=== PATIENT | female | born 1970 | race Caucasian/White ===

== ENCOUNTER → 2018-05-04 16:42 | Outpatient (CLI) | payer OTHER, SELFPAY ==
[2018-05-11 11:08] LABS: HPV Reflexed? NOT INDICATED
== END ==
PROVIDERS: Visit Provider Obstetrics & Gynecology
DX: Z12.4 Encounter for screening for malignant neoplasm of cervix (principal)
CPT/HCPCS: 88175; G0145

== ENCOUNTER → 2020-08-09 | Outpatient (CLI) | payer OTHER, SELFPAY ==
[2020-08-14 13:36] LABS: HPV Reflexed? NOT INDICATED
== END | disposition home or self-care (01) ==
LOC: LABSPEC 10:30
PROVIDERS: Visit Provider Obstetrics & Gynecology
DX: Z12.4 Encounter for screening for malignant neoplasm of cervix (principal)
CPT/HCPCS: 88175; G0145

== ENCOUNTER → 2023-03-27 | Outpatient (CLI) | payer OTHER, SELFPAY ==
[2023-04-02 17:07] LABS: HPV APTIMA, High Risk Negative (Negative)
== END | disposition home or self-care (01) ==
PROVIDERS: Referring Provider Registered Nurse; Visit Provider Registered Nurse
DX: Z12.4 Encounter for screening for malignant neoplasm of cervix (principal)
CPT/HCPCS: 87624; 88175; G0145

== ENCOUNTER → 2023-04-08 | Outpatient (CLI) | payer OTHER, SELFPAY ==
--- NOTE | 2023-04-08 08:25 | BI_ITS ---
MAMMOGRAPHY - BILATERAL SCREENING REASON FOR EXAM: Female, 52 years old. Routine annual screening examination. PERTINENT HISTORY: Non-contributory. TECHNIQUE: Digital bilateral breast kirby (3D mammographic acquisition) in the CC and MLO projections. 2-D mediolateral oblique (MLO) and craniocaudad (CC) views of both breasts were obtained. CAD: Full Field Digital Mammography with Computer Added Detection was performed. COMPARISON: Screening mammogram from outside facility from 10/08/2021, 09/04/2020. FINDINGS: Breast Composition: There are scattered areas of fibroglandular density. There are no dominant masses or suspicious calcifications. Stable benign-appearing left breast calcifications. No other significant abnormalities are identified. There has been no significant change since the prior study. BI/SCRN MAMM (CAD)W/KIRBY BILAT IMPRESSION: Negative screening mammogram. Stable examination when compared to outside study from 10/08/2021. Yearly followup mammogram recommended. (A) ASSESSMENT CATEGORY: BIRADS Category 2: Benign. A letter regarding these results will be sent to the patient by the facility within 30 days. Approximately 10% of breast cancers are not detected by mammography. A normal mammogram should not delay biopsy of a clinically suspicious abnormality. Electronically Signed: Jarett Singh DO at 11:40 EDT ,
[2023-04-08 09:11] LABS: Hematocrit 41.7 % (37-47); Hemoglobin 13.9 g/dL (12.0-15.0); Mean Corp Hgb Conc 33.3 g/dL (32-36); Mean Corpuscular Volume 92.9 fL (81-99); Mean Platelet Vol. 9.4 fl (6.2-12.0); Platelet Count 233 K/mm3 (150-450); RBC Distribution Width CV 12.1 % (11.6-14.6); RBC Distribution Width SD 41.5 fl (35.1-43.9); Red Blood Count 4.49 M/mm3 (4.2-5.4); White Blood Count 6.3 K/mm3 (4.4-11.0)
[2023-04-08 09:24] LABS: ALB/GLOB Ratio 1.1 RATIO (0.9-2.4); AST(SGOT) 17 U/L (15-37); Alanine Aminotransfer ALT/SGPT 13 U/L (13-56); Albumin, Serum 4.3 g/dL (3.2-5.0); Alkaline Phosphatase 95 U/L (45-117); Anion Gap 8 (5-15); BUN 11 mg/dL (7-18); Calcium,Total 9.8 mg/dL (8.5-10.1); Chloride 107 mmol/L (98-107); Creatinine, Serum 0.91 mg/dL (0.55-1.02); EST Glomerular Filtration Rate 69 mL/min (>60); Est Glom Filt Rate - Afr Amer 83 mL/min (>60); Glucose 117 mg/dL (74-106); Potassium 3.5 mmol/L (3.5-5.1); Protein, Total 8.3 g/dL (6.4-8.2); Sodium Level 141 mmol/L (136-145)
[2023-04-08 10:18] LABS: Hemoglobin A1c 5.5 % (3.8-5.6)
== END | disposition home or self-care (01) ==
PROVIDERS: Referring Provider Registered Nurse; Visit Provider Registered Nurse
DX: Z12.31 Encounter for screening mammogram for malignant neoplasm of breast (principal); Z00.00 Encounter for general adult medical examination without abnormal findings
CPT/HCPCS: 36415; 77063; 77067; 80053; 83036; 85027

== ENCOUNTER 2023-05-14 07:15 | Day surgery (SDC) | payer OTHER, SELFPAY ==
[2023-05-14 07:39] VITALS: BP 152/77; PULSE 98; RESP 16; TEMP 36.9; O2SAT 100; BMI 32.9
[2023-05-14 07:44] LABS: Internal QC Validated? YES +Cl - CLEAR BKGD; Pregnancy, Urine Negative Negative
[2023-05-14] MEDS: Lactated Ringers 1,000 ML 15 ML IV (07:44)
--- NOTE | 2023-05-14 08:13 | HP.PCM_ITS ---
HPI - General General Date of Admission: 05/14/23 HPI Narrative IRAIS AMAYA, is a 52 F who presents for screening colonoscopy. Patient never had previous colonoscopy. Patient's maternal grandfather did have colon cancer in his 40s?patient's mother has not gotten a colonoscopy but her siblings have. Patient has bowel movements daily denies any blood. Patient denies any chronic abdominal pain/nausea/vomiting/reflux. PFSH Medical History (Updated 05/12/23 @ 09:53 by Mariah Enriquez) Arthritis History of echocardiogram History of stress test Non-smoker Wears glasses Home Medications NK 03/27/23 [History Last Taken Unknown] Allergy/AdvReac Type Severity Reaction Status Date / Time amoxicillin Allergy Mild Hives Verified 05/14/23 07:38 Family History (Updated 04/04/23 @ 14:48 by Jalyn Silvestre) Grandfather Colon cancer Other Diabetes Surgical History (Updated 05/12/23 @ 09:53 by Mariah Enriquez) History of cardiac catheterization S/P cholecystectomy Social History household members: spouse number of children: 2 current occupation: retired [employer] sexually active: Yes Smoking Status: Never smoker alcohol intake: never substance use type: does not use what type of physical activity do you participate in: yoga frequency: 5-6 times per week additional social history: - Francis Past Medical/Surgical History Planned Operation Planned Operative Procedure/s: COLONOSCOPY-OA Previous Hospitalizations/Surgeries HX Hospitalizations: No Any Problems With Anesthesia: No You/Your Family Experience Fever (Hyperthermia) With Anes: No Cholinesterase deficiency: No Cardiovascular Hx Hypertension: No Respiratory Hx Sleep Apnea: No Hx Respiratory Tract Infection/Cold (presently): No Do You Snore Loudly (louder than talking or can be heard): No Do You Often Feel Tired/ Fatigued/ Sleepy Dring Daytime?: No Has Anyone Observed You Stop Breathing During Sleep?: No Result (for STOP score): Negative Smoking Status: Never smoker Neurological Does patient have nerve stimulator: No Reproduction : No Allergies amoxicillin Allergy (Mild, Verified 05/14/23 07:38) Hives Discharge Is Pt Admitted From a Senior Living, or a Residential: No Vital Signs Vital Signs Vital Signs: 05/14/23 07:39 05/14/23 07:39 Temperature 98.4 F Temperature Source Temporal Pulse Rate 98 Respiratory Rate 16 Respiratory Pattern Normal Blood Pressure 152/77 H Blood Pressure Mean 102 Blood Pressure Source Monitor Blood Pressure Position Sitting Blood Pressure Location Left Arm Pulse Ox 100 Oxygen Delivery Method Room Air Weight Weight: 174 lb 2.643 oz Body Mass Index (BMI) 32.9 Physical Exam Const alert, oriented x3 and no apparent distress HEENT normocephalic and head/scalp atraumatic Resp normal respiratory effort Cardio regular rate GI soft to palpation and non-tender; Negative for non-distended Palpation: Negative for guarding Extremity no clubbing, cyanosis or edema Neuro CN's II-XII intact bilaterally Psych mental status grossly normal Assessment & Plan Assessment/Plan (1) Encounter for screening for malignant neoplasm of colon: Surgery Risks - Colonoscopy I discussed with the patient the risks of the procedure: Yes Risks Include but are not Limited To: Risks include but are not limited to: Bleeding, perforation requiring further surgery, inability to complete colonoscopy requiring barium enema.
[2023-05-14 08:54] VITALS: BP 107/67; PULSE 72; RESP 68; TEMP 36.3; O2SAT 100
--- NOTE | 2023-05-14 08:57 | OP.CCLET_ITS ---
05/14/2023 No Primary Care Physician Re : Colonoscopy procedure for Torie Osorio Dear Care Physician This procedure was performed on Sunday, May 14, 2023. My impressions and recommendations are as follows: Impressions : - Hemorrhoids found on perianal exam. - Non-bleeding internal hemorrhoids. - Diverticulosis in the sigmoid colon. - The examination was otherwise normal. - No specimens collected. Recommendations : - Discharge patient to home. - High fiber diet. - Continue present medications. - Repeat colonoscopy in 10 years for screening purposes. My findings are described in the full procedure note, which is enclosed. If I can be of further assistance, please feel free to contact me at Doctor phone number(s): , Work: . Sincerely, MD Marcia Valero MD 05/14/2023 8:56:53 AM This report has been signed electronically.
--- NOTE | 2023-05-14 08:57 | OP.COLON_ITS ---
Patient Name: Torie Osorio Procedure Date: 05/14/2023 8:23 AM Date of : 1970 Age: 52 Procedure: Colonoscopy Indications: Screening for colorectal malignant neoplasm Providers: Marcia Piña MD Medicines: Monitored Anesthesia Care Patient Profile: This is a 52 year old female. Last Colonoscopy: none. The patient's first colonoscopy is today. Complications: No immediate complications. Procedure: Pre-Anesthesia Assessment: - Prior to the procedure, a History and Physical was performed, and patient medications and allergies were reviewed. The patient's tolerance of previous anesthesia was also reviewed. The risks and benefits of the procedure and the sedation options and risks were discussed with the patient. All questions were answered, and informed consent was obtained. Prior Anticoagulants: The patient has taken no anticoagulant or antiplatelet agents. ASA Grade Assessment: Per anesthesia. After reviewing the risks and benefits, the patient was deemed in satisfactory condition to undergo the procedure. After I obtained informed consent, the scope was passed under direct vision. Throughout the procedure, the patient's blood pressure, pulse, and oxygen saturations were monitored continuously. The Colonoscope was introduced through the anus and advanced to the cecum, identified by the appendiceal orifice, ileocecal valve and palpation. The colonoscopy was performed without difficulty. The patient tolerated the procedure well. The quality of the bowel preparation was good. Scope In: 8:36:46 AM Scope Withdrawal Time 0 hours 6 minutes 8 seconds Scope Out: 8:49:40 AM Total Procedure Duration Time 0 hours 12 minutes 54 seconds Findings: Hemorrhoids were found on perianal exam. Non-bleeding internal hemorrhoids were found. The hemorrhoids were Grade I (internal hemorrhoids that do not prolapse). A few small-mouthed diverticula were found in the sigmoid colon. The exam was otherwise without abnormality. Impression: - Hemorrhoids found on perianal exam. - Non-bleeding internal hemorrhoids. - Diverticulosis in the sigmoid colon. - The examination was otherwise normal. - No specimens collected. Recommendation: - Discharge patient to home. - High fiber diet. - Continue present medications. - Repeat colonoscopy in 10 years for screening purposes. Procedure Code(s): --- Professional --- G0121, PT, Colorectal cancer screening; colonoscopy on individual not meeting criteria for high risk Diagnosis Code(s): --- Professional --- Z12.11, Encounter for screening for malignant neoplasm of colon K64.0, First degree hemorrhoids K57.30, Diverticulosis of large intestine without perforation or abscess without bleeding CPT copyright 2021 [employer]. All rights reserved. The codes documented in this report are preliminary and upon certified professional coder review may be revised to meet current compliance requirements. MD Marcia Valero MD 05/14/2023 8:56:53 AM This report has been signed electronically. Number of Addenda: 0 Note Initiated On: 05/14/2023 8:23 AM
[2023-05-14 08:59] VITALS: BP 107/67; BP 93/50; PULSE 70; RESP 16; O2SAT 98
[2023-05-14 09:05] VITALS: BP 107/67; BP 95/60; PULSE 59; RESP 16; O2SAT 98
[2023-05-14 09:10] VITALS: BP 107/67; BP 95/62; PULSE 60; RESP 16; TEMP 36.2; O2SAT 98
[2023-05-14 09:18] VITALS: BP 107/67
== END 2023-05-14 09:30 | disposition home or self-care (01) ==
LOC: EN 07:22 → AC 07:26
PROVIDERS: Anesthesiology; Visit Provider Surgery
PROC: 0DJD8ZZ Inspection of Lower Intestinal Tract, Via Natural or Artificial Opening Endoscopic (ICD-10-PCS; CPT 45378; principal; 2023-05-14 08:10)
DX: Z12.11 Encounter for screening for malignant neoplasm of colon (principal); K64.0 First degree hemorrhoids; K57.30 Diverticulosis of large intestine without perforation or abscess without bleeding; Z90.49 Acquired absence of other specified parts of digestive tract
CPT/HCPCS: 45378; 81025; J7120; J2405

== ENCOUNTER → 2024-05-06 | Outpatient (CLI) | payer OTHER, SELFPAY ==
--- NOTE | 2024-05-06 07:11 | BI_ITS ---
MAMMOGRAPHY - BILATERAL SCREENING REASON FOR EXAM: Female, 53 years old. Routine annual screening examination. PERTINENT HISTORY: Non-contributory. TECHNIQUE: Digital bilateral breast kirby (3D mammographic acquisition) in the CC and MLO projections. 2-D mediolateral oblique (MLO) and craniocaudad (CC) views of both breasts were obtained. CAD: Full Field Digital Mammography with Computer Added Detection was performed. COMPARISON: Comparison is made with prior study April 08, 2023. FINDINGS: Breast Composition: There are scattered areas of fibroglandular density. There are no dominant masses or suspicious calcifications. Stable benign-appearing left breast calcifications. No focal cluster is seen. No other significant abnormalities are identified. There has been no significant change since the prior study. BI/SCRN MAMM (CAD)W/KIRBY BILAT IMPRESSION: Stable bilateral screening mammogram. Yearly follow-up mammogram recommended. (A) ASSESSMENT CATEGORY: BIRADS Category 2: Benign. A letter regarding these results will be sent to the patient by the facility within 30 days. Approximately 10% of breast cancers are not detected by mammography. A normal mammogram should not delay biopsy of a clinically suspicious abnormality. [id number] Electronically Signed: Giovani Joyce MD at 8:32 EDT ,
== END | disposition home or self-care (01) ==
LOC: OPBI 07:11
PROVIDERS: Referring Provider Registered Nurse; Visit Provider Registered Nurse
DX: Z12.31 Encounter for screening mammogram for malignant neoplasm of breast (principal)
CPT/HCPCS: 77063; 77067

== ENCOUNTER → 2025-05-23 | Outpatient (CLI) | payer OTHER, SELFPAY ==
--- NOTE | 2025-05-23 07:30 | BI_ITS ---
EXAM: SCRN MAMM (CAD)W/KIRBY BILAT DATE: 05/23/2025 CLINICAL HISTORY: F, Age 54 y/o , SCREENING TECHNIQUE: Procedure Code: [id number] Modality: MG Procedure: SCRN MAMM (CAD)W/KIRBY BILAT COMPARISON: Prior exam(s) dated 05/06/2024 and 04/08/2023. FINDINGS: TISSUE DENSITY: The breasts are almost entirely fatty. Bilateral Breast Mammographic Findings: No significant masses, calcifications or other abnormalities are identified. Benign-appearing round microcalcifications are seen in both breasts. Benign-appearing macrocalcifications are seen in the left breast. A stable 2 mm benign-appearing intramammary lymph node in the lateral, far posterior aspect of the left breast is noted. BI/SCRN MAMM (CAD)W/KIRBY BILAT IMPRESSION: Benign screening mammogram OVERALL FINAL ASSESSMENT BI-RADS 2: BENIGN RECOMMENDATION: Routine annual follow-up in 1 Year Additional Recommendation none A letter with findings and recommendations will be mailed to the patient. Reading Location: [id number]
--- OUTSIDE RECORDS SUMMARY | 2025-05-23 07:45 | XMS RPT_ITS | CCD ---
Author Organization [facility] Care Team Providers Care Transmission Assembler Name Role Phone KRISTEN DOBBINS MD Consulting Unavailable EDELMIRA REECE Attending Unavailable EDELMIRA REECE Primary Care Unavailable EDELMIRA REECE Admitting Unavailable PROVIDER, UNKNOWN Consulting Unavailable PROVIDER, UNKNOWN Consulting Unavailable PROVIDER, UNKNOWN Consulting Unavailable BRIAN Palmer Attending Provider Care Physician, No Primary Primary Care Provider Unavailable Jalyn Silvestre Attending Provider Unavailable Care Physician, No Primary Referring Provider Un available Dr. Marcia Piña Attending Provider [phone] Dr. Marcia Piña Other Provider Care Physician, No Primary Primary Care Provider Unavailable Care Physician, No Primary Referring Provider Un available Massiel Huber Attending Provider Massiel Rdz Attending Unavailable Care Physician, No Primary Primary Care Unava ilable Care Physician, No Primary Referring Unava ilLaura Willams Referring Unavailable Care Physician, No Primary Primary Care Unava ilLaura Willams Attending Unavailable Allergies Allergy Classification Reported Allergen(s) Allergy Type Date of Onset Reaction(s) Facility (3 sources) Amoxicillin Drug Allergy 04-04-2023 [facility] (1 source) Amoxicillin Drug Allergy 04-23-2024 [facility] Repository Medications Current Medications Medication Drug Class(es) Dates Sig (Normalized) Sig (Original) [place] (Nk) (3 sources) Start: 04-23-2024 [place] (Nk) A ctive April 23, 2024 12:00am Start: 03-27-2023 [place] (Nk) A ctive March 27, 2023 12:00am Completed/Discontinued Medications Medication Drug Class(es) Dates Sig (Normalized) Sig (Original) azithromycin 250 mg oral tablet (1 source) Macrolide Antimicrobial Start: 01-05-2024 End: 04-23-2024 Azithromycin (Zithromax Z-Gonzalez) 250 mg tablet Discontinued 0 PO .COMPLEX 6 0 January 05, 2024 12:00am April 23, 2024 9:29am For 250 mg dose pack: take 500 mg today (day 1), then 250 mg for 4 days (days 2-5) PO valACYclovir 1000 mg oral tablet (3 sources) Herpesvirus Nucleoside Analog DNA Polymerase Inhibitor, Herpes Simplex Virus Nucleoside Analog DNA Polymerase Inhibitor, Herpes Zoster Virus Nucleoside Analog DNA Polymerase Inhibitor Start: 11-18-2022 End: 11-25-2022 Valacyclovir 1 gram tablet Discontinued 1000 mg PO Q8H 21 7 0 November 18, 2022 12:00am November 24, 2022 12:00am November 25, 2022 12:04am Start: 11-18-2022 End: 11-25-2022 take 1000 mg by mouth every eight hours Valacyclovir Discontinued 1000 MG PO Q8H 7 November 18, 2022 12:00am November 25, 2022 12:04am Problems Problem Classification Problem Date Documented Da te Episodic/Chronic Mycoses (1 source) Candidiasis of skin; Translations: [Candidiasis of skin and nail] 04-23-2024 Episodic Comment on above: desires to use topic al otc cream first. if not improved in 1 week will call for nystatin cream rx. Osteoarthritis (3 sources) Arthritis; Translations: [Unspecified osteoarthritis, unspecified site] 03-27-2023 Chronic Comment on above: NECK Other screening for suspected conditions (not mental disorders or infectious disease) (6 sources) Patient encounter status; Translations: [Encounter for screening for malignant neoplasm of colon] Onset: 05-31-2024 04-04-2023 Episodic Comment on above: 2022- normal. Residual codes; unclassified (3 sources) Family history of cancer of colon; Translations: [Family history of malignant neoplasm of digestive organs] 03-27-2023 Episodic Viral infection (3 sources) Herpes zoster; Translations: [Zoster without complications] 11-18-2022 Episodic Results Test Name Value Interpretation Reference Range Facility [facility] Visit Reporton 05-02-2025 [facility] Visit Report [address], [address] [place] [address] OFFICE VISIT Date of Service: 05/02/25 MR#: [id number] Acct: [id number] Name: IRAIS AMAYA Rep #: [id number] : 1970 Provider: GAVIOTA Winter Age/Sex: 54/F Location: [facility] Status: Signed Intake Vital Signs 04/23/24 09:28 05/02/25 07:09 05/02/25 07:12 Height 5 ft 1 in 5 ft 1 in 5 ft 1 in Weight: 203 lb BMI 38.3 BP 129/77 H 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) Allergies amoxicillin Allergy (Mild, Verified 04/23/24 09:25) Hives [facility] Medical History Wears glasses Non-smoker History of echocardiogram History of stress test Arthritis Surgical History History of cardiac catheterization S/P cholecystectomy Family History Grandfather Colon cancer Other Diabetes Social History household members: spouse number of children: 2 current occupation: retired [employer] sexually active: Yes Smoking Status: Never smoker alcohol intake: never substance use type: does not use what type of physical activity do you participate in: yoga frequency: 5-6 times per week additional social history: - Francis HPI Encounter for routine gynecological examination Details: IRAIS AMAYA is a 54 year old who presents for annual exam. She reports no issues or concerns today. Doing well. Continues in menopause--no vaginal bleeding since menopause started. Last PAP: 2022; normal/negative. History of abnormal PAP: no Last mammogram: 2023-negative. History of abnormal mammogram: none Colon cancer screening: Colonoscopy; 2022[facility]. Repeat in 10 years recommended. Other preventative health care screenings: Primary Care Doctor: Does not have. Female Reproductive History Questions: metrorrhagia: No, sexually active: Yes, dyspareunia: No and PCB: No Menopausal Symptoms: Yes hot flashes, Yes night sweats, No weight change, No mood changes, No difficulty concentrating, No sleep problems and No change in libido Menopausal Treatment: No HRT, No Vaginal Estrogen, No Osphena, No OTC treatments and No prescription non-hormonal treatment ROS Const Constitutional: Reports night sweats; Denies chills, fatigue, fever(s), headache(s) or weight loss Eyes Eyes: Denies change in vision ENT ENT: Denies dizziness Cardio Card: Denies chest pain at rest or palpitations Resp Resp: Denies cough or dyspnea GI GI: Denies abdominal pain, constipation or nausea : Reports hot flashes; Denies difficulty voiding, dysuria, hematuria, nipple discharge, pelvic pain, prolapse symptoms, urinary incontinence, vaginal discharge, vaginal dryness, vaginal odor or vaginal pruritus Skin Skin/Breast: Denies alopecia, rash, breast mass, breast pain, breast skin changes or nipple discharge Neuro Neuro: Denies dizziness Psych Psych: Denies anxiety, change in libido, depression or difficulty concentrating Endo Endo: Denies cold intolerance, excessive sweating or heat intolerance Exam Const General: cooperative, healthy appearing, comfortable, no acute distress, well groomed and well hydrated Nutritional Appearance: well nourished Orientation: alert, awake and oriented x3 HENMT Head: normal to inspection and normocephalic Ears: hearing grossly normal bilaterally and external ears normal Nose: external nose normal Face and sinus: normal facial exam Eyes General: appearance normal, both eyes and all related structures Neck Neck: normal visual inspection, full ROM and no lymphadenopathy Thyroid: thyroid normal Chest Chest palpation inspection: normal inspection of the chest Breast inspection: normal inspection of the breasts and normal inspection of the axillae Breast palpation: normal palpation of the breasts, normal palpation of the axillae and no axillary lymphadenopathy Resp Effort Inspection: normal respiratory effort, able to speak in complete sentences and symmetric chest movement GI Inspection: normal to inspection Palpation: soft and no hepatosplenomegaly General: bladder normal to palpation External Female Exam: normal external appearance and normal appearance of the urethra Urethra: normal appearance of the urethra Speculum Exam - Vagina: normal appearance of the vagina, normal vaginal discharge, no lesions and nontender Speculum Exam - Cervix: normal appearance of the cervix, no lesions and no masses Bimanual Exam- Vagina Uterus: normal bimanual exam, uterine size normal, bladder normal to palpation, normal palpation and non-tender Bimanual Exam- Adnexa, other: normal adnexae, no masses, normal and non-tender Pelvic Suppo (more content not included)... Normal [facility] SCRN MAMM (CAD)W/KIRBY BILATo n 05-06-2024 SCRN MAMM (CAD)W/KIRBY BILAT [facility] Imaging Services [address] [place] [address] SCRN MAMM (CAD)W/KIRBY BILAT MR#: [id number] Acct: [id number] Name: IRAIS AMAYA Rep #: [id number] : 1970 F 53 From: Giovani romero MD PCP: Care Physician,No Primary Status: REG CLI Study: SCRN MAMM (CAD)W/KIRBY BILAT Date of Exam: 04/18 05/11 Exam# [id number] Ordering Dr: Laura Palmer [facility] [id number] MAMMOGRAPHY - BILATERAL SCREENING REASON FOR EXAM: Female, 53 years old. Routine annual screening examination. PERTINENT HISTORY: Non-contributory. TECHNIQUE: Digital bilateral breast kirby (3D mammographic acquisition) in the CC and MLO projections. 2-D mediolateral oblique (MLO) and craniocaudad (CC) views of both breasts were obtained. CAD: Full Field Digital Mammography with Computer Added Detection was performed. COMPARISON: Comparison is made with prior study April 08, 2023. FINDINGS: Breast Composition: There are scattered areas of fibroglandular density. There are no dominant masses or suspicious calcifications. Stable benign-appearing left breast calcifications. No focal cluster is seen. No other significant abnormalities are identified. There has been no significant change since the prior study. BI/SCRN MAMM (CAD)W/KIRBY BILAT IMPRESSION: Stable bilateral screening mammogram. Yearly follow-up mammogram recommended. (A) ASSESSMENT CATEGORY: BIRADS Category 2: Benign. A letter regarding these results will be sent to the patient by the facility within 30 days. Approximately 10% of breast cancers are not detected by mammography. A normal mammogram should not delay biopsy of a clinically suspicious abnormality. [id number] Electronically Signed: Giovani Joyce MD at 8:32 EDT , CC: BRIAN Palmer; No Primary Care Physician Job Cost Estimator: Signed Normal [facility] Laboratory - Chemistry and C hemistry - challengeOrdered By: Godwin Reece on 05-14-2023 HCG ( test) Ql (U) Negative [facility] Comment on above: Very dilute urine sp ecimens, as indicated by a low specificgravity, may not contain artist's representative levels of hCG. If is still suspected, a first morning urinespecimen should be collected 48 hours later and tested. Basophil percentageOrdered B y: Laura Palmer on 04-08-2023 Bilirubin [Mass/Vol] 0.70 mg/dL 0.20-1.00 [facility] Comment on above: For patients on eltr ombopag therapy, use of [employer] TBIL is not recommended. Chloride [Moles/Vol] 107 mmol/L 98-107 [facility] Glucose [Mass/Vol] 117 mg/dL 74-106 [facility] Comment on above: Fasting Glucose resu lt from 100 to 125 mg/dL suggests IMPAIRED HOMEOSTASIS per A.D.A. criteria. Potassium [Moles/Vol] 3.5 mmol/L 3.5-5.1 [facility] Protein [Mass/Vol] 8.3 g/dL 6.4-8.2 [facility] Sodium [Moles/Vol] 141 mmol/L 136-145 [facility] WBC (Bld) [#/Vol] 6.3 10*3/uL 4.4-11.0 [facility] Blood erythrocytes count (nu mber/volume)Ordered By: Laura Palmer on 04-08-2023 RBC (Bld) [#/Vol] 4.49 10*6/uL 4.2-5.4 [facility] Blood hemoglobin measurement (mass/volume)Ordered By: Laura Palmer on 04-08-2023 Hemoglobin (Bld) [Mass/Vol] 13.9 g/dL 12.0-15.0 [facility] Blood platelet mean volumeOr dered By: Laura Palmer on 04-08-2023 Platelet mean volume (Bld) [Entitic vol] 9.4 fL 6.2-12.0 [facility] Determination of erythrocyte mean corpuscular volume (MCV)Ordered By: Laura Palmer on 04-08-2023 MCV (RBC) [Entitic vol] 92.9 fL 81-99 [facility] Hematocrit Auto (Bld) [Volum e fraction]Ordered By: Laura Palmer on 04-08-2023 Hematocrit (Bld) [Volume fraction] 41.7 % 37-47 [facility] Laboratory - Chemistry and C hemistry - challengeOrdered By: Laura Palmer on 04-08-2023 ALP [Catalytic activity/Vol] 95 U/L 45-117 [facility] ALT [Catalytic activity/Vol] 13 U/L 13-56 [facility] CO2 [Moles/Vol] 26.0 mmol/L 21.0-32.0 [facility] Globulin (S) [Mass/Vol] 4.0 g/dL 2.2-4.2 [facility] Urea nitrogen/Creatinine [Mass ratio] 12.0 mg/mg 10-20 [facility] Laboratory - Hematology and Cell countsOrdered By: Laura Palmer on 04-08-2023 Erythrocyte distribution width (RBC) [Entitic vol] 41.5 fL 35.1-43.9 [facility] Erythrocyte distribution width (RBC) [Ratio] 12.1 % 11.6-14.6 [facility] MCH (RBC) [Entitic mass] 31.0 pg 27.0-32.0 [facility] MCHC Auto (RBC) [Mass/Vol]Or dered By: Laura Palmer on 04-08-2023 MCHC (RBC) [Mass/Vol] 33.3 g/dL 32-36 [facility] No Panel InformationOrdered By: Laura Palmer on 04-08-2023 Estimated GFR (MDRD) Amer 83 mL/min >60 [facility] Comment on above: GFR Calc Estimated GFR (MDRD) Non-Af Amer 69 mL/min >60 [facility] Comment on above: Non- GFR Calc Platelets bldOrdered By: Eve Palmer on 04-08-2023 Platelets (Bld) [#/Vol] 233 10*3/uL 150-450 [facility] Serum or plasma albumin kimberly urement (mass/volume)Ordered By: Laura Palmer on 04-08-2023 Albumin [Mass/Vol] 4.3 g/dL 3.2-5.0 [facility] Serum or plasma albumin/glob ulin mass ratioOrdered By: Laura Palmer on 04-08-2023 Albumin/Globulin [Mass ratio] 1.1 {ratio} 0.9-2.4 [facility] Serum or plasma calcium kimberly urement (mass/volume)Ordered By: Laura Palmer on 04-08-2023 Calcium [Mass/Vol] 9.8 mg/dL 8.5-10.1 [facility] Serum or plasma creatinine m easurement (mass/volume)Ordered By: Laura Palmer on 04-08-2023 Creatinine [Mass/Vol] 0.91 mg/dL 0.55-1.02 [facility] Comment on above: The validity of the calculated GFR & GFRAA in patients over 70 years has not been determined. Clinical correlation is essential. Serum or plasma urea nitroge n measurement (mass/volume)Ordered By: Laura Palmer on 04-08-2023 Urea nitrogen [Mass/Vol] 11 mg/dL 7-18 [facility] Thin prep Papanicolaou smear with manual screeningOrdered By: Laura Palmer on 04-08-2023 Thin prep Papanicolaou smear with manual screening 17 U/L 15-37 [facility] Thin prep Papanicolaou smear with manual screening 8 5-15 [facility] Whole blood hemoglobin A1c/t otal hemoglobin ratio (mass fraction)Ordered By: Laura Palmer on 04-08-2023 HbA1c (Bld) [Mass fraction] 5.5 % 3.8-5.6 [facility] Comment on above: Normal < 5.7 % Predi abetic 5.7 - 6.4 % Diabetic >or= 6.5 % Please note range changes. Cervical or vagninal specime n microscopic examination by cytology stain (reported asOrdered By: Laura Palmer on 03-27-2023 Cytology report Cyto stain Doc (Cvx/Vag) Comment . [facility] Comment on above: The Pap smear is a s creening test designed to aid in thedetection of premalignant and malignant conditions of theuterine cervix. It is not a diagnostic procedure andshould not be used as the sole means of detecting cervicalcancer. Both false-positive and false-negative reports dooccur. Detection in cervical specim en of any of human papilloma virus (HPV) 16, 18, 31, 33,Ordered By: Laura Palmer on 03-27-2023 HPV 16+18+31+33+35+39+45+5 1+52+56+58+59+66+68 DNA Probe+sig amp Ql (Cvx) Negative Negative [facility] Comment on above: This nucleic acid am plification test detects fourteen high- risk HPV types (16,18,31,33,35,39,45,51,52,56,58,59,66,68)without differentiation. Laboratory - CytologyOrdered By: Laura Palmer on 03-27-2023 Tax Manager Cyto stain Nom (Cvx/Vag) [ID] Comment . [facility] Comment on above: Tatiana El otechnologist (ASCP) Pathologist Cyto stain Nom (Cvx/Vag) [ID] Comment . [facility] Comment on above: Jackie Mcdonald MD, [facility] Laboratory - Miscellaneous t estsOrdered By: Laura Palmer on 03-27-2023 Service comment (Unsp spec) [Interp] Comment . [facility] Comment on above: This liquid based Th inPrep(R) pap test was screened withthe use of an image guided system. Service comment (Unsp spec) [Interp] . . [facility] Liquid-based cerv Pap + CT/G C by CARLOS w reflex to high-risk HPV for ASCUSOrdered By: Laura Palmer on 08-10-2023 Cytology report Cyto stain.thin prep Doc (Cvx/Vag) Comment . [facility] Comment on above: Criteria not met, HP V Genotype not performed.Performed at: [facility] [id number] [place], [place] [id number] Director: Yamil Flores MD, Phone: [phone] at: - [facility] [id number] Director: Alma Rosa Pederson MD, Phone: [phone] at: =G - [facility] [address] [id number] Director: Alma Rosa Pederson MD, Phone: [phone] No Panel InformationOrdered By: Laura Palmer on 03-27-2023 Pathology report final diagnosis Narrative Comment . [facility] Comment on above: NEGATIVE FOR INTRAEP ITHELIAL LESION OR MALIGNANCY.REACTIVE CELLULAR CHANGES AND/OR REPAIR ARE PRESENT. 3D MAMM BILAT SCREENon 10-08 3D MAMM BILAT SCREEN [place] [address] Patient: IRAIS AMAYA Phone#: : 1970 Age: 50 Gender: F Pt. Type: Out Account: [id number] Location: Ordering: EDELMIRA REECE Exam Date: 10/08/2021/9:04 Family Phys: KRISTEN DOBBINS Charge Code: [id number] Physician: [place] Order #: [id number] DLP Dose#: PROCEDURE: BILATERAL SCREENING BREAST TOMOSYNTHESIS MAMMOGRAM WITH CAD COMPARISON: [facility], BILAT SCREENING, 02/25/2019, 14:26. [facility], BILAT SCREENING, 09/04/2020, 9:13. INDICATIONS: Screening. BREAST COMPOSITION: Scattered fibroglandular densities(25-50% glandular). FINDINGS: DIAGNOSTIC CATEGORY 1--NEGATIVE ASSESSMENT. RIGHT BREAST: No significant suspicious finding. No significant change has occurred. LEFT BREAST: No significant suspicious finding. Stable benign calcifications. No significant change has occurred. RECOMMENDATIONS: ROUTINE MAMMOGRAM AND CLINICAL EVALUATION IN 12 MONTHS. PLEASE NOTE: A NORMAL MAMMOGRAM DOES NOT EXCLUDE THE POSSIBILITY OF BREAST CANCER. A CLINICALLY SUSPICIOUS PALPABLE LUMP SHOULD BE BIOPSIED. THIS FACILITY UTILIZES A REMINDER SYSTEM TO ENSURE THAT ALL PATIENTS RECEIVE REMINDER LETTERS FOR APPOINTMENTS. THIS INCLUDES REMINDERS FOR ROUTINE MAMMOGRAMS, DIAGNOSITC MAMMOGRAMS, OR OTHER BREAST IMAGING INTERVENTIONS WHEN APPROPRIATE. THIS PATIENT WILL BE PLACED IN THE APPROPRIATE REMINDER SYSTEM. Dictated by: Calin Stewart MD on 10/08/2021 at 11:01 Approved by: Calin Stewart MD on 10/08/2021 at 11:02 Normal [facility] Vital Signs Date Time Vital Sign Value Performing Clinician Faci lity 05-02-2025 07:12-0400 Body height 154.94 cm No Primary Care Physician [facility] 05-02-2025 07:09-0400 Body mass index (BMI) [Ratio] 38.3 kg/m2 No Primary Care Physician [facility] 05-02-2025 07:09-0400 Body weight 92.07 kg No Primary Care Physician [facility] 05-02-2025 07:09-0400 Diastolic blood pressure 77 mm[Hg] No Primary Care Physician [facility] 05-02-2025 07:09-0400 Systolic blood pressure 129 mm[Hg] No Primary Care Physician [facility] 05-14-2023 09:10-0400 Body temperature 97.2 [degF] No Primary Care Physician [facility] 05-14-2023 09:10-0400 Diastolic blood pressure 62 mm[Hg] No Primary Care Physician [facility] 05-14-2023 09:10-0400 Heart rate 60 /min No Primary Care Physician [facility] 05-14-2023 09:10-0400 Respiratory rate 16 /min No Primary Care Physician [facility] 05-14-2023 09:10-0400 SaO2% (BldA) [Mass fraction] 98 % No Primary Care Physician [facility] 05-14-2023 09:10-0400 Systolic blood pressure 95 mm[Hg] No Primary Care Physician [facility] 05-14-2023 07:39-0400 Body height 154.94 cm No Primary Care Physician [facility] 05-14-2023 07:39-0400 Body mass index (BMI) [Ratio] 32.9 kg/m2 No Primary Care Physician [facility] 05-14-2023 07:39-0400 Body weight 79 kg No Primary Care Physician [facility] 04-04-2023 14:54-0400 Body height 154.94 cm No Primary Care Physician [facility] 04-04-2023 14:54-0400 Body mass index (BMI) [Ratio] 31.7 kg/m2 No Primary Care Physician [facility] 04-04-2023 14:54-0400 Body weight 76.2 kg No Primary Care Physician [facility] 03-27-2023 08:11-0400 Body mass index (BMI) [Ratio] 32.5 kg/m2 No Primary Care Physician [facility] 03-27-2023 08:11-0400 Body weight 78.01 kg No Primary Care Physician [facility] 03-27-2023 08:11-0400 Diastolic blood pressure 74 mm[Hg] No Primary Care Physician [facility] 03-27-2023 08:11-0400 Systolic blood pressure 120 mm[Hg] No Primary Care Physician [facility] Encounters Encounter Date Encounter Type Care Provider Facility Start: 05-02-2025 Encounter for gynecological examination (general) (routine) without abnormal findings Massiel Rdz [facility] Start: 05-02-2025 End: 05-02-2025 Patient encounter procedure Masisel MEEK -[facility] Start: 05-02-2025 End: 05-02-2025 Patient encounter status Massiel MEEK [facility] Start: 05-02-2025 End: 05-02-2025 ambulatory No Primary Care Physician -[facility] Start: 05-06-2024 End: 05-06-2024 ambulatory [facility] Facility:[facility] Start: 05-14-2023 Non-patient / Non-visit No [facility] Physician [id number] Start: 05-14-2023 End: 05-14-2023 Admission to same day surgery center No Primary Care Physician [facility]-Endoscopy Work Phone: Start: 05-14-2023 End: 05-14-2023 ambulatory No Primary Care Physician [facility] Work Phone: Start: 04-08-2023 End: 04-08-2023 ambulatory No Primary Care Physician [facility] Work Phone: Start: 04-08-2023 End: 04-08-2023 Patient encounter procedure No Primary Care Physician [facility]-Outpatient Breast Imaging Work Phone: Start: 04-04-2023 Non-patient / Non-visit No [facility] Physician [facility] Work Phone: Start: 03-27-2023 End: 03-27-2023 Patient encounter procedure No Primary Care Physician [facility]-Outpatient Breast Imaging Work Phone: Start: 03-27-2023 End: 03-27-2023 Patient encounter procedure No Primary Care Physician [facility] Start: 10-08-2021 End: 10-08-2021 ambulatory KRISTEN Romo [facility] Procedures Date Procedure Procedure Detail Performing Clinician Start: 05-14-2023 Colonoscopy No Primary Care Physician Start: 04-08-2023 Screening mammography N o Primary Care Physician Plan of Treatment Date Care Activity Detail Author Start: 05-14-[address] [facility] Start: 03-27-2023 Patient referral [facility] Work Phone: Colonoscopy [facility] MG Breast - bilateral Screening [facility] Patient referral [facility] Work Phone: Payers Date Payer Category Payer Self-pay [id number] 2024 Unknown [id number] 1970 Unknown [id number] Unknown [id number] Unknown [employer] [id number] Unknown [id number] Unknown [id number] Social History Date Type Detail Facility Start: 03-27-2023 End: 05-14-2023 Tobacco smoking status NHIS Unknown if ever smoked [facility] Start: 1970 Sex Assigned At Female [facility] Start: 05-14-2023 Tobacco smoking status NHIS Never smoked tobacco (finding) [facility] NEGATED: Highlighted row [facility] Goals Date Patient Goal Desired Activity /State Mental Status Date Assessment Result Facility 05-14-2023 Cognitive function Level Of Cons ciousness Follows Commands;Drowsy [facility] Work Phone: 05-14-2023 Cognitive function Voice/Name [facility] Work Phone: Clinical Notes 03-27-2023 to 05-02-2025 Note Date & Type Note Facility 05-02-2025 Progress note [facility] 05-14-2023 Procedure note [facility] 05-14-2023 Procedure note [facility] 03-27-2023 Note [facility] Pap Smear Specimen Adequacy March 27, 2023 1:33pm Comment . Satisfactory for evaluation. Endocervical and/or squamous metaplasticcells (endocervical component) are present. Comment on above: Satisfactory for calin luation. Endocervical and/or squamous metaplasticcells (endocervical component) are present. 03-27-2023 Note [facility] Pap Smear Specimen Adequacy March 27, 2023 1:33pm Comment . Satisfactory for evaluation. Endocervical and/or squamous metaplasticcells (endocervical component) are present. Comment on above: Satisfactory for calin luation. Endocervical and/or squamous metaplasticcells (endocervical component) are present. Evaluation note Diagnosis Onset Date Encounter for routine gyneco logical examination noneactive [facility] Work Phone: Evaluation note* Diagnosis Onset Date Resolution Status Encounter for routine gynecological examination noneactive Encounter for screening for malignant neoplasm of colon acute [facility] Work Phone: Evaluation note* Diagnosis Onset Date Resolution Status Admit Date Encounter for routine gynecological examination noneactive Sept2024 6:56am [facility] Work Phone: History and physical note Author Marcia Piña [facility] May 14, 2023 8:17am Note Date/Time May 14, 2023 8:17am [facility] Medical Records Department [address] [place] [address] History & Physical Exam 05/14/23812 MR#: [id number] Acct: [id number] Name: IRAIS AMAYA Rep #:[id number] : 1970 52 From: Marcia Piña MD PCP: Care Physician,No Primary Status :[facility] [place] Location: [place] [address] HPI - General General Date of Admission: 05/14/23 HPI Narrative IRAIS AMAYA, is a 52 F who presents for screening colonoscopy. Patient never had previous colonoscopy. Patient's maternal grandfather did have colon cancer in his 40s?patient's mother has not gotten a colonoscopy but her siblings have. Patient has bowel movements daily denies any blood. Patient denies any chronic abdominal pain/nausea/vomiting/reflux. [facility] Medical History (Updated 05/12/23 @ 09:53 by Mariah Enriquez) Arthritis History of echocardiogram History of stress test Non-smoker Wears glasses Home Medications NK 03/27/23 [History Last Taken Unknown] Allergy/AdvReac Type Severity Reaction Status Date / Time amoxicillin Allergy Mild Hives Verified 05/14/23 07:38 Family History (Updated 04/04/23 @ 14:48 by Jalyn Silvestre) Grandfather Colon cancer Other Diabetes Surgical History (Updated 05/12/23 @ 09:53 by Mariah Enriquez) History of cardiac catheterization S/P cholecystectomy Social History household members: spouse number of children: 2 current occupation: retired [employer] sexually active: Yes Smoking Status: Never smoker alcohol intake: never substance use type: does not use what type of physical activity do you participate in: yoga frequency: 5-6 times per week additional social history: - Francis Past Medical/Surgical History Planned Operation Planned Operative Procedure/s: COLONOSCOPY-OA Previous Hospitalizations/Surgeries HX Hospitalizations: No Any Problems With Anesthesia: No You/Your Family Experience Fever (Hyperthermia) With Anes: No Cholinesterase deficiency: No Cardiovascular Hx Hypertension: No Respiratory Hx Sleep Apnea: No Hx Respiratory Tract Infection/Cold (presently): No Do You Snore Loudly (louder than talking or can be heard): No Do You Often Feel Tired/ Fatigued/ Sleepy Dring Daytime?: No Has Anyone Observed You Stop Breathing During Sleep?: No Result (for STOP score): Negative Smoking Status: Never smoker Neurological Does patient have nerve stimulator: No Reproduction : No Allergies amoxicillin Allergy (Mild, Verified 05/14/23 07:38) Hives Discharge Is Pt Admitted From a Correction, or a Correction: No Vital Signs Vital Signs Vital Signs: 05/14/23 07:39 05/14/23 07:39 Temperature 98.4 F Temperature Source Temporal Pulse Rate 98 Respiratory Rate 16 Respiratory Pattern Normal Blood Pressure 152/77 H Blood Pressure Mean 102 Blood Pressure Source Monitor Blood Pressure Position Sitting Blood Pressure Location Left Arm Pulse Ox 100 Oxygen Delivery Method Room Air Weight Weight: 174 lb 2.643 oz Body Mass Index (BMI) 32.9 Physical Exam Const alert, oriented x3 and no apparent distress HEENT normocephalic and head/scalp atraumatic Resp normal respiratory effort Cardio regular rate GI soft to palpation and non-tender; Negative for non-distended Palpation: Negative for guarding Extremity no clubbing, cyanosis or edema Neuro CN's II-XII intact bilaterally Psych mental status grossly normal Assessment & Plan Assessment/Plan (1) Encounter for screening for malignant neoplasm of colon: Surgery Risks - Colonoscopy I discussed with the patient the risks of the procedure: Yes Risks Include but are not Limited To: Risks include but are not limited to: Bleeding, perforation requiring further surgery, inability to complete colonoscopy requiring barium enema. 05/14/2317 <Electronically signed by Marcia Piña MD> Cosigner Signature (if applicable): CC: Dr. Marcia Piña MD; No Primary Care Physician~ Signed [facility] Work Phone: Progress note Author Massiel Rdz [facility] Note Date/Time May 02, 2025 7:25am [facility] [address] [place] [address] OFFICE VISIT Date of Service: 05/02/25 MR#: [id number] Acct: [id number] Name: IRAIS AMAYA Rep #: [id number] : 1970 Provider: GAVIOTA Rdz Age/Sex: 54/F Location: [facility] [place] Status: Signed Intake Vital Signs 04/23/24 09:28 05/02/25 07:09 05/02/25 07:12 Height 5 ft 1 in 5 ft 1 in 5 ft 1 in Weight: 203 lb BMI 38.3 BP 129/77 H 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) Allergies amoxicillin Allergy (Mild, Verified 04/23/24 09:25) Hives [facility] Medical History Wears glasses Non-smoker History of echocardiogram History of stress test Arthritis Surgical History History of cardiac catheterization S/P cholecystectomy Family History Grandfather Colon cancer Other Diabetes Social History household members: spouse number of children: 2 current occupation: retired [employer] sexually active: Yes Smoking Status: Never smoker alcohol intake: never substance use type: does not use what type of physical activity do you participate in: yoga frequency: 5-6 times per week additional social history: - Francis [facility] Encounter for routine gynecological examination Details: IRAIS AMAYA is a 54 year old who presents for annual exam. She reports no issues or concerns today. Doing well. Continues in menopause--no vaginal bleeding since menopause started. Last PAP: 2022; normal/negative. History of abnormal PAP: no Last mammogram: 2023-negative. History of abnormal mammogram: none Colon cancer screening: Colonoscopy; 2022--[facility]. Repeat in 10 years recommended. Other preventative health care screenings: Primary Care Doctor: Does not have. Female Reproductive History Questions: metrorrhagia: No, sexually active: Yes, dyspareunia: No and PCB: No Menopausal Symptoms: Yes hot flashes, Yes night sweats, No weight change, No mood changes, No difficulty concentrating, No sleep problems and No change in libido Menopausal Treatment: No HRT, No Vaginal Estrogen, No Osphena, No OTC treatmentsand No prescription non-hormonal treatment ROS Const Constitutional: Reports night sweats; Denies chills, fatigue, fever(s), headache(s) or weight loss Eyes Eyes: Denies change in vision ENT ENT: Denies dizziness Cardio Card: Denies chest pain at rest or palpitations Resp Resp: Denies cough or dyspnea GI GI: Denies abdominal pain, constipation or nausea : Reports hot flashes; Denies difficulty voiding, dysuria, hematuria, nipple discharge, pelvic pain, prolapse symptoms, urinary incontinence, vaginal discharge, vaginal dryness, vaginal odor or vaginal pruritus Skin Skin/Breast: Denies alopecia, rash, breast mass, breast pain, breast skin changes or nipple discharge Neuro Neuro: Denies dizziness Psych Psych: Denies anxiety, change in libido, depression or difficulty concentrating Endo Endo: Denies cold intolerance, excessive sweating or heat intolerance Exam Const General: cooperative, healthy appearing, comfortable, no acute distress, well groomed and well hydrated Nutritional Appearance: well nourished Orientation: alert, awake and oriented x3 HENMT Head: normal to inspection and normocephalic Ears: hearing grossly normal bilaterally and external ears normal Nose: external nose normal Face and sinus: normal facial exam Eyes General: appearance normal, both eyes and all related structures Neck Neck: normal visual inspection, full ROM and no lymphadenopathy Thyroid: thyroid normal Chest Chest palpation & inspection: normal inspection of the chest Breast inspection: normal inspection of the breasts and normal inspection of theaxillae Breast palpation: normal palpation of the breasts, normal palpation of the axillae and no axillary lymphadenopathy Resp Effort & Inspection: normal respiratory effort, able to speak in complete sentences and symmetric chest movement GI Inspection: normal to inspection Palpation: soft and no hepatosplenomegaly General: bladder normal to palpation External Female Exam: normal external appearance and normal appearance of the urethra Urethra: normal appearance of the urethra Speculum Exam - Vagina: normal appearance of the vagina, normal vaginal discharge, no lesions and nontender Speculum Exam - Cervix: normal appearance of the cervix, no lesions and no masses Bimanual Exam- Vagina & Uterus: normal bimanual exam, uterine size normal, bladder normal to palpation, normal palpation and non-tender Bimanual Exam- Adnexa, other: normal adnexae, no masses, normal and non-tender Pelvic Support: normal Skin General: no rashes or lesions noted Neuro General: patient alert, patient awake, patient oriented x3 and moves all extremities Psych Appearance: grossly normal Mental Status: mental status grossly normal Affect: normal affect Speech and Movement: speech and movement normal Attitude: cooperative Coding Level of Care Code Established Pt Off vis,est,prev 40-64yrs Patient Type Established Diagnoses Encounter for routine gynecological examination Z01.419 Assessment and Plan Assessment and Plan (1) Encounter for routine gynecological examination: Plan: Breast and pelvic exam complete. PAP due: 2022-UTD with normal/neg. Mammogram due: orders placed to obtain Advised self breast exams monthly. Contraception: post menopausal. Advised incorporating healthy dietary choices such as increase in lean meats, fruits/vegetables, less processed food/sat fat/trans fats. Increase exercise to 30 minutes per day/5 days a week. This can include both weight bearing exercisesand/or brisk walking. Obtain PCP; suggestions given. Follow up with PCP for further preventative health screenings. 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 Call office sooner with questions or concerns. Orders: Orders SCRN MAMM (CAD)W/KIRBY BILAT Today Z12.39 - Encounter for other screening for malignant neoplasm of breast 05/02/25 0725 <Electronically signed by Massiel MEEK> Date _ Massiel MEEK Cosigner Signature: Date (if applicable) CC: ~ [facility] Work Phone: Reason for referral (narrative)No reason for referral information [facility] Work Phone: Summary Purpose Family History No Family History Records Found Relationship Condition Age at Onset Recorded Date/T moody Not Specified Diabetes mellitus Unknown grandfather Malignant neoplasm of colon Unknown Advance Directives No Advanced Directives Records Found Advance Directive Response Recorded Date/ Time Living Will No May 12, 2023 9:53am Power of Acid Condenser No April 9:53am Chief Complaint and Reason for Visit Chief Complaint 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, 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 Amb Documentation SCREENING Reason for Visit Encounter for routin e gynecological examination Chief Complaint 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, 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 Amb Documentation SCREENING Reason for Visit Encounter for routin e gynecological examination Encounter for screening for malignant neoplasm of colon Chief Complaint Admit Date 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) May 02, 2025 6:56am Reason for Visit Admit Date Encounter for routine gynecological exam ination May 02, 2025 6:56am Additional Source Comments INFORMATION SOURCE (unrecogn ized section and content) DATE CREATED AUTHOR 10/08/2021 [facility] DATE CREATED AUTHOR AUTHOR'S BART ATION 05/02/2025 [facility] Care Teams (unrecognized sec tion and content) Team Status: Active Member Role Status Dates No Primary Care Physician Primary Care Provider Active Team Status: Inactive Member Role Status Dates Laura Palmer CNM Attending Provider Active Team Status: Active Member Role Status Dates No Primary Care Physician Primary Care Provider Active Jalyn Silvestre Attending Provider Active Team Status: Inactive Member Role Status Dates No Primary Care Physician Primary Care Provider Active Laura Palmer CNM Attending Provider, Referring Pr ovider Active Team Status: Inactive Member Role Status Dates Laura Palmer CNM Attending Provider, Referring Pr ovider Active No Primary Care Physician Primary Care Provider Active Team Status: Active Member Role Status Dates No Primary Care Physician Primary Care Provider, Refer ring Provider Active Dr. Marcia Piña MD Attending Provider, Other Pro vider Active Team Status: Inactive Member Role Status Dates No Primary Care Physician Primary Care Provider, Refer ring Provider Active Dr. Marcia Piña MD Attending Provider Active Team Status: Active Member Role/Relationship Status Dates No Primary Care Physician Primary Care Provider Active Team Status: Inactive Member Role/Relationship Status Dates No Primary Care Physician Primary Care Provider Active Start: May 02, 2025 End: May 02, 2025 No Primary Care Physician Referring Provider Active Start: May 02, 2025 End: May 02, 2025 GAVIOTA Pierson Attending Provider Active Start: May 02, 2025 End: May 02, 2025 Goals (unrecognized section and content) Goals may be documented in a n alternate sectionGoals may be documented in an alternate section FOR RECORDS PERTAINING TO PATIENTS WHO ARE OR HAVE BEEN ENROLLED IN A CHEMICAL DEPENDENCY/SUBSTANCEABUSE PROGRAM, SOME INFORMATION MAY BE OMITTED. This clinical summary was aggregated from multiple sources. Caution should be exercised in using it in the provision of clinical care. This summary normalizes information from multiple sources, and as a consequence, information in this document may materially change the coding, format and clinical context of patient data. In addition, data may be omitted in some cases. CLINICAL DECISIONS SHOULD BE BASED ON THE PRIMARY CLINICAL RECORDS. [employer] [facility] provides no warranty or guarantee of the accuracy or completeness of information in this document.
== END | disposition home or self-care (01) ==
PROVIDERS: Referring Provider Nurse Practitioner Family; Visit Provider Nurse Practitioner Family
DX: Z12.31 Encounter for screening mammogram for malignant neoplasm of breast (principal)
CPT/HCPCS: 77063; 77067